=== PATIENT | female | born 1975 | race Caucasian/White ===

== ENCOUNTER 2017-09-23 21:54 | Emergency (ER) | payer MEDICAID ==
[2017-09-23] MEDS ORDERED: Ketorolac 10 MG Tab PO ONE (21:55)
[2017-09-23] MEDS ORDERED: Sulfamethoxazole/Trimethoprim 800-160 MG Tab PO ONE (21:55)
[2017-09-23 22:03] VITALS: BP 148/90
[2017-09-23 22:34] LABS: CHLORIDE,CL 101 mEq/L (98-106); SODIUM,NA 140 mEq/L (136-145)
[2017-09-23] MEDS ORDERED: Ketorolac 60 MG/2 ML SDV IM ONE (22:46)
--- NOTE | 2017-09-23 23:41 | EDM.PDOC ---
ED HPI GENERAL MEDICAL PROBLEM - General Chief Complaint: Abdominal Pain Stated Complaint: UPPER ABDOMEN PAIN Time Seen by Provider: 09/23/17 22:05 Source of Information: Reports: Patient History Limitations: Reports: No Limitations - History of Present Illness INITIAL COMMENTS - FREE TEXT/NARRATIVE: Emily is a 42 yo female who presents to the ER, accompanied by her mother, with complaints of lower abdominal pain since last week Friday. She states on Friday when she ate lunch and supper she ended up vomiting afterwards. Admits she hasn't had any emesis since but has felt nauseated. She states the pain started Friday evening and really hasn't let up. Had a little diarrhea today but had a normal bowel movement yesterday. She denies flu-like symptoms presently. States her abdomen just hurts. Periods have been normal for her with last cycle sometime at the end of July or beginning of August. States she will go without a period some months. Denies any chance of . States she has been eating chicken broth, saltine crackers, popsicles, etc... She admits to still having her gallbladder and appendix. Onset Date: 09/19/17 Duration: Constant Location: Reports: Abdomen Abdominal Pain Score (Numeric/FACES): 8 - Related Data Allergies Allergy/AdvReac Type Severity Reaction Status Date / Time No Known Allergies Allergy Verified 09/23/17 22:03 Home Meds: Home Meds Furosemide [Lasix] 40 mg PO DAILY 09/23/17 [History] Gabapentin [Neurontin] 100 mg PO TID 09/23/17 [History] Iron,Carbonyl/Vit C/Vit B12/Fa [Iron 100 Plus Tablet] 65 mg PO DAILY 09/23/17 [ History] Naproxen Sodium [Aleve] 220 mg PO ASDIRECTED PRN 09/23/17 [History] Polyvinyl Alcohol/Povidone/Pf [Refresh Classic Eye Drops] 1 drop EYEBOTH DAILY 09/23/17 [History] Past Medical History HEENT History: Reports: Impaired Vision Other HEENT History: GLASSES Endocrine/Metabolic History: Reports: Obesity/BMI 30+ Hematologic History: Reports: B12 Deficiency, Iron Deficiency Dermatologic History: Reports: Urticaria Social & Family History - Family History Family Medical History: Noncontributory - Tobacco Use Smoking Status *Q: Never Smoker - Caffeine Use Caffeine Use: Reports: Soda - Recreational Drug Use Recreational Drug Use: No ED ROS GENERAL - Review of Systems Review Of Systems: See Below Constitutional: Reports: Decreased Appetite. Denies: Fever, Chills HEENT: Reports: No Symptoms Respiratory: Reports: No Symptoms. Denies: Shortness of Breath, Wheezing, Cough Cardiovascular: Denies: Chest Pain, Palpitations GI/Abdominal: Reports: Abdominal Pain, Diarrhea, Vomiting. Denies: Bloody Stool , Nausea (not presently) : Reports: Irregular Menses. Denies: Discharge, Dysuria, Flank Pain, Frequency, Hematuria Skin: Reports: No Symptoms Neurological: Reports: No Symptoms ED EXAM, GI/ABD - Physical Exam Exam: See Below Exam Limited By: No Limitations General Appearance: Alert, No Apparent Distress, Obese. No: Anxious, Severe Distress, Active Emesis Ears: Normal External Exam, Normal Canal, Hearing Grossly Normal, Normal TMs Nose: Normal Inspection, Normal Mucosa, No Blood Throat/Mouth: Normal Inspection, Normal Lips, Normal Gums, Normal Oropharynx, Normal Voice, No Airway Compromise Head: Atraumatic, Normocephalic Neck: Normal Inspection, Supple Respiratory/Chest: No Respiratory Distress, Lungs Clear, Normal Breath Sounds, No Accessory Muscle Use Cardiovascular: Normal Peripheral Pulses, Regular Rate, Rhythm GI/Abdominal Exam: Normal Bowel Sounds, Soft, No Organomegaly, No Distention, No Mass, Tender (mild suprapubic) Neurological: Alert, Oriented, Normal Cognition, No Motor/Sensory Deficits Psychiatric: Normal Affect, Normal Mood Skin Exam: Warm, Dry, Intact, Normal Color, No Rash Course - Vital Signs Last Recorded V/S: Last Vital Signs Temp 98.4 F 09/23/17 21:55 Pulse 67 09/23/17 21:55 Resp 18 09/23/17 21:55 BP 148/90 H 09/23/17 21:55 Pulse Ox 93 L 09/23/17 21:55 - Orders/Labs/Meds Orders: Active Orders 24 hr Category Date Time Status UA W/MICROSCOPIC [URIN] Stat Lab 09/23/17 22:20 Ordered Labs: Laboratory Tests 09/23/17 09/23/17 09/23/17 Range/Units 22:20 22:20 22:20 WBC 7.4 (5.0-10.0) 10^3/uL RBC 4.92 (4.00-5.50) 10^6/uL Hgb 13.9 (12.0-16.0) g/dL Hct 44.7 (37.0-47.0) % MCV 90.9 (82.0-94.0) fL MCH 28.3 (27.0-32.0) pg MCHC 31.1 L (33.0-38.0) g/dL RDW Coeff of Brain 14.0 (11.0-15.0) % Plt Count 162 (150-400) 10^3/uL Neut % (Auto) 79.3 (35-85) % Lymph % (Auto) 11.0 (10-55) % [place] % (Auto) 7.5 (0-16) % Eos % (Auto) 1.9 (0-5) % Baso % (Auto) 0.3 (0-3) % Neut # (Auto) 5.90 (1.80-7.00) 10^3/uL Lymph # (Auto) 0.82 L (1.00-4.80) 10^3/uL [place] # (Auto) 0.56 (0.00-0.80) 10^3/uL Eos # (Auto) 0.14 (0.00-0.45) 10^3/uL Baso # (Auto) 0.02 10^3/uL Sodium 140 (136-145) mEq/L Potassium 4.3 (3.5-5.0) mEq/L Chloride 101 (98-106) mEq/L Carbon Dioxide 36 H (21-32) mmol/L BUN 12 (7-18) mg/dL Creatinine 1.0 D (0.6-1.0) mg/dL Est Cr Clr Drug Dosing 60.62 mL/min Estimated GFR (MDRD) > 60 (>=60) mL/min Glucose 115 H (75-99) mg/dL Calcium 9.4 (8.4-10.1) mg/dL Total Bilirubin 0.6 (0.0-1.0) mg/dL AST 21 (15-37) U/L ALT 31 (12-78) U/L Alkaline Phosphatase 146 H (46-116) U/L C-Reactive Protein 3.2 H (0.2-0.8) mg/dL Total Protein 7.4 (6.4-8.2) g/dL Albumin 2.9 L (3.4-5.0) g/dL Amylase 54 (25-115) U/L Urine Color Yellow (YELLOW) Urine Appearance Slightly cloudy (CLEAR) Urine pH 7.0 (4.5-8.0) Ur Specific [place] 1.015 (1.003-1.020) Urine Protein Negative (NEGATIVE) mg/dL Urine Glucose (UA) Negative (NEGATIVE) mg/dL Urine Ketones Negative (NEGATIVE) mg/dL Urine Occult Blood Large H (NEGATIVE) Urine Nitrite Negative (NEGATIVE) Urine Bilirubin Negative (NEGATIVE) Urine Urobilinogen 0.2 (0.2-1.0) EU/dL Ur Leukocyte Esterase Trace H (NEGATIVE) Urine RBC 50-75 H (0-5) /HPF Urine WBC 0-5 (0-5) /HPF Ur Squamous Epith Cells Moderate H (NOT SEEN) /HPF Urine Bacteria Occasional H (NOT SEEN) /HPF Meds: Medications Discontinued Medications Generic Name Dose Route Start Last Admin Trade Name Freq PRN Reason Stop Dose Admin Ketorolac Tromethamine 60 mg 09/23/17 22:46 09/23/17 22:51 Toradol IM 09/23/17 22:47 60 mg ONETIME ONE Administration Departure - Departure Time of Disposition: 23:43 Disposition: Home, Self-Care 01 Clinical Impression: UTI (urinary tract infection) Qualifiers: Urinary tract infection type: acute cystitis Hematuria presence: with hematuria Qualified Code(s): N30.01 - Acute cystitis with hematuria - Discharge Information Instructions: Urinary Tract Infection, Adult Additional Instructions: 1) TORADOL 10MG - 1 TABLET EVERY 8 HOURS NEEDED FOR PAIN, RECOMMEND ALTERNATING WITH TYLENOL 2) PUSH FLUIDS 3) REST 4) BACTRIM DS - 1 TABLET TWICE A DAY FOR 3 DAYS, MAY TAKE INITIAL DOSE TONIGHT IN ER 5) RECHECK IN CLINIC ON FRIDAY WITH REPEAT URINALYSIS WITH POSSIBLE RENAL/ BLADDER ULTRASOUND 6) RETURN TO ER IF PAIN WORSENS OR ANY NEW ONSET OF SYMPTOMS (FEVERS, ETC...). - Problem List & Annotations (1) UTI (urinary tract infection) SNOMED Code(s): 66604683 Code(s): N39.0 - URINARY TRACT INFECTION, SITE NOT SPECIFIED Status: Acute Qualifiers: Urinary tract infection type: acute cystitis Hematuria presence: with hematuria Qualified Code(s): N30.01 - Acute cystitis with hematuria - Problem List Review Problem List Initiated/Reviewed/Updated: Yes - My Orders Last 24 Hours: My Active Orders 09/23/17 22:20 UA W/MICROSCOPIC [URIN] Stat - Assessment/Plan Last 24 Hours: My Active Orders 09/23/17 22:20 UA W/MICROSCOPIC [URIN] Stat Plan: SEE ADDITIONAL INSTRUCTIONS. LABORATORY WORK WAS FAIRLY UNREMARKABLE. WBC, NORMAL. URINALYSIS DID SHOW HEMATURIA WITH QUESTIONABLE UTI. WILL HAVE HER FOLLOW UP ON FRIDAY IN CLINIC FOR REPEAT UA.
[2017-09-23] MEDS ORDERED: Take Home: Ketorolac 10 MG Tab, 4 Tab Pack PO ONE (23:44)
[2017-09-23] MEDS ORDERED: Take Home: Sulfamethoxazole/Trimethoprim 800-160 MG Tab, 2 Tab Pack PO ONE (23:45)
== END 2017-09-24 00:05 | disposition home or self-care (01) ==
LOC: CC.ED 21:54
DX: N30.01 Acute cystitis with hematuria (principal); E66.9 Obesity, unspecified; Z79.899 Other long term (current) drug therapy
CPT/HCPCS: 36415; 80053; 81001; 82150; 85025; 86140; 96372; 99284; A9270-GY; J1885

== ENCOUNTER 2018-10-22 13:55 | Emergency (ER) | payer MEDICAID ==
[2018-10-22 14:07] VITALS: BP 113/74
--- NOTE | 2018-10-22 14:53 | EDM.PDOC ---
ED HPI GENERAL MEDICAL PROBLEM - General Chief Complaint: Head Injury Stated Complaint: Fall, LOC Time Seen by Provider: 10/22/18 14:15 Source of Information: Reports: Patient, Family (Mom) History Limitations: Reports: No Limitations - History of Present Illness INITIAL COMMENTS - FREE TEXT/NARRATIVE: Pt tripped at home and fell on to the floor onto her abdomen. Mother was there and witnessed it. She did hit her head on the corner of the wall. 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 She was not able to roll herself over and her mother did attempt to help her. She states that at some point she passed out and Mom states that she was having trouble breathing. She did call the ambulance for assistance and they were able to roll her over and get her up to sitting. She remembers falling and then everybody talking to her. She denies any pain or injury. Does have small red william on the right side of her head that is not tender. 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 Onset: Today Location: Reports: Head Associated Symptoms: Denies: Confusion, Nausea/Vomiting Treatments POPULATION HEALTH COACH: Reports: Other (see below) Other Treatments POPULATION HEALTH COACH: On home oxygen - Related Data Allergies Allergy/AdvReac Type Severity Reaction Status Date / Time No Known Allergies Allergy Verified 10/22/18 14:14 Home Meds: Home Meds Furosemide [Lasix] 40 mg PO DAILY 09/23/17 [History] Gabapentin [Neurontin] 100 mg PO TID 09/23/17 [History] Iron,Carbonyl/Vit C/Vit B12/Fa [Iron 100 Plus Tablet] 65 mg PO DAILY 09/23/17 [ History] Naproxen Sodium [Aleve] 220 mg PO ASDIRECTED PRN 09/23/17 [History] Polyvinyl Alcohol/Povidone/Pf [Refresh Classic Eye Drops] 1 drop EYEBOTH DAILY 09/23/17 [History] Past Medical History HEENT History: Reports: Impaired Vision Other HEENT History: GLASSES Neurological History: Reports: Other (See Below) (myotonic dystrophy) Endocrine/Metabolic History: Reports: Obesity/BMI 30+ Hematologic History: Reports: B12 Deficiency, Iron Deficiency Dermatologic History: Reports: Urticaria Social & Family History - Family History Family Medical History: Noncontributory - Caffeine Use Caffeine Use: Reports: Soda - Living Situation & Occupation Living situation: Reports: Single, with Family Occupation: Disabled ED ROS GENERAL - Review of Systems Review Of Systems: See Below Constitutional: Denies: Fever, Chills HEENT: Reports: No Symptoms Respiratory: Reports: Shortness of Breath (has home oxygen.) Cardiovascular: Reports: No Symptoms GI/Abdominal: Reports: No Symptoms Musculoskeletal: Denies: Neck Pain, Back Pain Skin: Reports: No Symptoms Neurological: Denies: Confusion, Dizziness, Headache, Numbness, Tingling, Difficulty Walking Psychiatric: Denies: Anxiety, Confusion ED EXAM, HEAD INJURY - Physical Exam Exam: See Below Exam Limited By: No Limitations General Appearance: Alert, WD/WN, No Apparent Distress Head: Atraumatic, Normocephalic Nexus Criteria: No: Posterior, Midline Cervical Tenderness, Evidence of Intoxication, Altered Level of Consciousness, Focal Neurological Deficit, Painful Distraction Injuries Eyes: Bilateral Eye: PERRL Ears: Normal External Exam, Normal Canal, Normal TMs Nose: Normal Inspection Throat/Mouth: Normal Inspection, Normal Oropharynx, No Airway Compromise Neck: Non-Tender, Full Range of Motion, Normal Alignment, Normal Inspection Respiratory: No Respiratory Distress, Lungs Clear, Normal Breath Sounds Cardiovascular: Regular Rate, Rhythm GI/Abdominal Exam: Normal Bowel Sounds, Soft, No Organomegaly Back Exam: Normal Inspection Extremities: Normal Inspection, Normal Range of Motion, Non-Tender, No Pedal Edema, Normal Capillary Refill Neurologic: No Motor/Sensory Deficits, Alert, Oriented x 3 Skin: Normal Color, Warm/Dry - Campbell Coma Score Best Eye Response (Campbell): (4) Open Spontaneously Best Verbal Response (Rissa): (5) Oriented Best Motor Response (Campbell): (6) Obeys Commands Rissa Total: 15 Course - Vital Signs Last Recorded V/S: Last Vital Signs Temp 97.4 F 10/22/18 14:02 Pulse 89 10/22/18 14:02 Resp 23 H 10/22/18 14:02 BP 113/74 10/22/18 14:02 Pulse Ox 94 L 10/22/18 14:02 - Orders/Labs/Meds Labs: Laboratory Tests 10/22/18 10/22/18 10/22/18 Range/Units 14:30 14:40 14:40 WBC 9.5 (5.0-10.0) 10^3/uL RBC 4.94 (4.00-5.50) 10^6/uL Hgb 12.9 (12.0-16.0) g/dL Hct 44.2 (37.0-47.0) % MCV 89.5 (82.0-94.0) fL MCH 26.1 L (27.0-32.0) pg MCHC 29.2 L (33.0-38.0) g/dL RDW Coeff of Brain 16.9 H (11.0-15.0) % Plt Count 199 (150-400) 10^3/uL Add Manual Diff Yes Neutrophils % (Manual) 82 (35-85) % Band Neutrophils % 4 (0-5) % Lymphocytes % (Manual) 5 L (21-55) % Monocytes % (Manual) 8 (2-12) % Eosinophils % (Manual) 1 (0-5) % Sodium 144 (136-145) mEq/L Potassium 3.3 L (3.5-5.0) mEq/L Chloride 104 (98-106) mEq/L Carbon Dioxide 40 H (21-32) mmol/L BUN 10 (7-18) mg/dL Creatinine 0.6 (0.6-1.0) mg/dL Est Cr Clr Drug Dosing 100.01 mL/min Estimated GFR (MDRD) > 60 (>=60) mL/min Glucose 128 H (75-99) mg/dL Calcium 9.8 (8.4-10.1) mg/dL Magnesium 2.1 (1.8-2.4) mg/dL Total Bilirubin 0.3 (0.0-1.0) mg/dL AST 61 H (15-37) U/L ALT 56 (12-78) U/L Alkaline Phosphatase 185 H (46-116) U/L Total Protein 7.2 (6.4-8.2) g/dL Albumin 2.8 L (3.4-5.0) g/dL Urine Color Yellow (YELLOW) Urine Appearance Clear (CLEAR) Urine pH 7.0 (4.5-8.0) Ur Specific [place] 1.020 (1.003-1.020) Urine Protein 30 H (NEGATIVE) mg/dL Urine Glucose (UA) Negative (NEGATIVE) mg/dL Urine Ketones Negative (NEGATIVE) mg/dL Urine Occult Blood Small H (NEGATIVE) Urine Nitrite Negative (NEGATIVE) Urine Bilirubin Negative (NEGATIVE) Urine Urobilinogen 0.2 (0.2-1.0) EU/dL Ur Leukocyte Esterase Negative (NEGATIVE) Urine RBC 5-10 H (0-5) /HPF Urine WBC 0-5 (0-5) /HPF Ur Squamous Epith Cells Occasional H (NOT SEEN) /HPF - Re-Assessments/Exams Free Text/Narrative Re-Assessment/Exam: 10/22/18 1515 Pt is up and walking in ER per self. She denies any weakness or dizziness. States that she is back to her baseline. Departure - Departure Time of Disposition: 15:26 Disposition: Home, Self-Care 01 Condition: Good Clinical Impression: Fall at home Qualifiers: Encounter type: initial encounter Qualified Code(s): W19.XXXA - Unspecified fall, initial encounter - Discharge Information *PRESCRIPTION DRUG MONITORING PROGRAM REVIEWED*: Not Applicable *COPY OF PRESCRIPTION DRUG MONITORING REPORT IN PATIENT LOPEZ: Not Applicable Instructions: Head Injury, Adult, [id number] Referrals: Leti Schulz PA-C [Primary Care Provider] - Forms: ED Department Discharge Additional Instructions: If any change in status occurs then would need to be reseen recheck or call clinic with any concerns - Problem List & Annotations (1) Fall at home SNOMED Code(s): 15115776 Code(s): W19.XXXA - UNSPECIFIED FALL, INITIAL ENCOUNTER; Y92.009 - UNSP PLACE IN UNSP NON-INSTITUT (PRIVATE) RESIDENCE PLACE Status: Acute Qualifiers: Encounter type: initial encounter Qualified Code(s): W19.XXXA - Unspecified fall, initial encounter; Y92.009 - Unspecified place in unspecified non-institutional (private) residence as the place of occurrence of the external cause - Problem List Review Problem List Initiated/Reviewed/Updated: Yes
[2018-10-22 14:57] LABS: CHLORIDE,CL 104 mEq/L (98-106); SODIUM,NA 144 mEq/L (136-145)
== END 2018-10-22 15:36 | disposition home or self-care (01) ==
LOC: CC.ED 13:55
DX: Z04.3 Encounter for examination and observation following other accident (principal); Z99.81 Dependence on supplemental oxygen; Z79.899 Other long term (current) drug therapy
CPT/HCPCS: 36415; 80053; 81001; 83735; 85025; 99284

== ENCOUNTER 2019-11-13 18:17 | Observation (INO) | payer MEDICAID ==
--- NOTE | 2019-11-13 18:45 | EDM.PDOC ---
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 Her mother is having trouble helping manage her at this point. The patient advises that she has had increased lower extremity edema and redness and has had some mild shortness of breath she denies any chest pain she denies any abdominal pain she denies any nausea no vomiting she has had no diarrhea no constipation. She denies any other symptoms Onset: Gradual Duration: Day(s): (Patient has become more weak and having the symptoms of the last several days) Location: Reports: Generalized Severity: Moderate Improves with: Reports: None Worsens with: Reports: None Associated Symptoms: Reports: Shortness of Breath, Weakness. 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: Other (see below) (none) Bilateral Leg Pain Score (Numeric/FACES): 8 - Related Data Allergies Allergy/AdvReac Type Severity Reaction Status Date / Time No Known Allergies Allergy Verified 11/13/19 18:20 Home Meds: Home Meds Furosemide [Lasix] 40 mg PO DAILY 09/23/17 [History] Gabapentin [Neurontin] 100 mg PO TID 09/23/17 [History] Iron,Carb/Vit C/Vit B12/Folic [Iron 100 Plus Tablet] 65 mg PO DAILY 09/23/17 [ History] Naproxen Sodium [Aleve] 220 mg PO ASDIRECTED PRN 09/23/17 [History] Polyvinyl Alcohol/Povidone/Pf [Refresh Classic Eye Drops] 1 drop EYEBOTH DAILY 09/23/17 [History] Past Medical History HEENT History: Reports: Impaired Vision Other HEENT History: GLASSES Musculoskeletal History: Reports: Other (See Below) Other Musculoskeletal History: myotonic dystrophy Neurological History: Reports: Other (See Below) Endocrine/Metabolic History: Reports: Obesity/BMI 30+ Hematologic History: Reports: B12 Deficiency, Iron Deficiency Dermatologic History: Reports: Urticaria Social & Family History - Family History Family Medical History: Noncontributory - Tobacco Use Smoking Status *Q: Never Smoker - Caffeine Use Caffeine Use: Reports: Soda - Recreational Drug Use Recreational Drug Use: No - Living Situation & Occupation Living situation: Reports: Single, with Family Occupation: Disabled ED ROS GENERAL - Review of Systems Review Of Systems: See Below Constitutional: Reports: Weakness. Denies: Fever, Chills HEENT: Reports: No Symptoms. Denies: Ear Pain, Nose Pain, Throat Pain Respiratory: Reports: Shortness of Breath. Denies: Cough Cardiovascular: Reports: Edema (Lateral lower extremity edema). Denies: Chest Pain Endocrine: Reports: No Symptoms GI/Abdominal: Denies: Abdominal Pain, Nausea, Vomiting Musculoskeletal: Reports: Other (Has generalized weakness which is normal for the patient with her genetic condition, per the patient) Skin: Reports: Erythema (Mild redness to both distal lower extremities from the knees down to the ankles) Neurological: Reports: No Symptoms Psychiatric: Reports: No Symptoms ED EXAM, GENERAL - Physical Exam Exam: See Below Exam Limited By: No Limitations General Appearance: Alert, No Apparent Distress Ears: Normal External Exam Nose: Normal Inspection Throat/Mouth: Normal Inspection, Normal Voice, No Airway Compromise Head: Atraumatic, Normocephalic Neck: Normal Inspection, Supple, Non-Tender Respiratory/Chest: No Respiratory Distress. No: Lungs Clear (Sounds are diminished in the bases as she is morbidly obese and is not taking a deep breath) Cardiovascular: Normal Peripheral Pulses, Regular Rate, Rhythm. No: No Edema (Edema in both lower extremities equally) GI/Abdominal: Soft, Non-Tender, Other (Severe morbid obesity) Back Exam: Normal Inspection Extremities: Normal Capillary Refill, Redness, Other (Bilateral equal edema to both lower extremities). No: Seth's Sign Neurological: Alert, Oriented, Normal Cognition Psychiatric: Normal Affect, Normal Mood Skin Exam: Warm, Dry, Intact, No Rash EKG INTERPRETATION EKG Date: 11/13/19 Rhythm: NSR Rate (Beats/Min): 69 [place]: LAD-Left [place] Deviation EKG Interpretation Comments: Twelve-lead EKG shows a left bundle branch block with a ventricular rate of 69 there is no acute injury or ischemic pattern noted, I do not have any old EKGs to compare whether or not this is a new or old left bundle branch block. Course - Vital Signs Text/Narrative:: 1819 patient was evaluated in the emergency department patient appears to be dry, she does have bilateral lower extremity edema I suspect she has chronic lymphedema. 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 The patient's mom advises that she got the street from her father. Labs have been drawn and currently awaiting the results. EKG is still pending as well as a chest x-ray. An IV has been started with normal saline at 100 mL an hour 2000 the patient was evaluated in the emergency department, the patient CBC and general chemistries overall do not show any significant abnormalities however see the actual labs for complete details. The patient's BNP is slightly elevated. The twelve-lead EKG shows a left bundle branch block. This patient does appear to have mild congestive changes on the chest x-ray however this is a poor film and with the patient's body habitus this is difficult to determine and the radiology reading is pending. As the patient does appear to have early cellulitis of the bilateral lower extremities probably secondary to the chronic lymphedema as well as having some mild congestive heart failure based on the chest x-ray as well as the elevated BNP, the patient be placed in observation and she will be given Lasix 40 mg twice daily, the patient will have repeat labs in the morning and disposition and further treatment will be based on those assessments. Last Recorded V/S: Last Vital Signs Temp 36.8 C 11/13/19 18:18 Pulse 78 11/13/19 18:18 Resp 18 11/13/19 18:18 BP 162/82 H 11/13/19 18:18 Pulse Ox 96 11/13/19 18:18 - Orders/Labs/Meds Orders: Active Orders 24 hr Category Date Time Status Patient Status Manage Transfer [TRANSFER] Routine ADT 11/13/19 20:29 Ordered CXR [Chest 1V Frontal] [CR] Stat Exams 11/13/19 18:49 Taken CBC WITH AUTO DIFF [HEME] Stat Lab 11/13/19 18:20 Received PRO B-TYPE NATRIUR PEPT,BNPPRO [CHEM] Stat Lab 11/13/19 18:41 Ordered Sodium Chloride 0.9% [Normal Saline] 1,000 ml Med 11/13/19 18:30 Active IV ASDIRECTED Resuscitation Status Routine Resus Stat 11/13/19 20:32 Ordered Medication Orders Sodium Chloride (Normal Saline) 1,000 mls @ 100 mls/hr IV ASDIRECTED GRACIE Last Admin: 11/13/19 19:39 Dose: 100 mls/hr Documented by: JOSIE Labs: Laboratory Tests 11/13/19 11/13/19 11/13/19 Range/Units 18:20 18:20 18:20 Sodium 143 (136-145) mEq/L Potassium 3.3 L (3.5-5.0) mEq/L Chloride 101 (98-106) mEq/L Carbon Dioxide 41 H* (21-32) mmol/L BUN 11 (7-18) mg/dL Creatinine 0.7 (0.6-1.0) mg/dL Est Cr Clr Drug Dosing 84.84 mL/min Estimated GFR (MDRD) > 60 (>=60) mL/min Glucose 119 H (75-99) mg/dL Lactic Acid 0.7 (0.4-2.0) mmol/L Calcium 10.1 (8.4-10.1) mg/dL Magnesium 2.1 (1.8-2.4) mg/dL Total Bilirubin 0.6 (0.0-1.0) mg/dL AST 58 H (15-37) U/L ALT 50 (12-78) U/L Alkaline Phosphatase 160 H (46-116) U/L C-Reactive Protein 1.6 H (0.2-0.8) mg/dL Total Protein 7.1 (6.4-8.2) g/dL Albumin 3.0 L (3.4-5.0) g/dL Urine Color Yellow (YELLOW) Urine Appearance Clear (CLEAR) Urine pH 8.0 (4.5-8.0) Ur Specific [place] 1.015 (1.003-1.020) Urine Protein Negative (NEGATIVE) mg/dL Urine Glucose (UA) Negative (NEGATIVE) mg/dL Urine Ketones Negative (NEGATIVE) mg/dL Urine Occult Blood Trace-intact H (NEGATIVE) Urine Nitrite Negative (NEGATIVE) Urine Bilirubin Negative (NEGATIVE) Urine Urobilinogen 0.2 (0.2-1.0) EU/dL Ur Leukocyte Esterase Trace H (NEGATIVE) Meds: Medications Generic Name Dose Route Start Last Admin Trade Name Francisco Javier PRN Reason Stop Dose Admin Sodium Chloride 1,000 mls @ 100 mls/hr 11/13/19 18:30 11/13/19 19:39 Normal Saline IV 100 mls/hr ASDIRECTED GRACIE Administration Departure - Departure Time of Disposition: 20:28 Disposition: Refer to Observation Condition: Good Clinical Impression: Bilateral lower leg cellulitis, Mild congestive heart failure, Shortness of breath, Weakness - Discharge Information *PRESCRIPTION DRUG MONITORING PROGRAM REVIEWED*: Not Applicable *COPY OF PRESCRIPTION DRUG MONITORING REPORT IN PATIENT LOPEZ: Not Applicable Referrals: Humberto Torres MD [Primary Care Provider] - Forms: ED Department Discharge Sepsis Event Note (ED) - Evaluation Sepsis Screening Result: No Definite Risk - Focused Exam Vital Signs: Vital Signs Temp Pulse Resp BP Pulse Ox 11/13/19 18:18 36.8 C 78 18 162/82 H 96 - Problem List & Annotations (1) Bilateral lower leg cellulitis SNOMED Code(s): 237099239 Code(s): L03.116 - CELLULITIS OF LEFT LOWER LIMB; L03.115 - CELLULITIS OF RIGHT LOWER LIMB Status: Acute Priority: Medium Current Visit: Yes (2) Mild congestive heart failure SNOMED Code(s): 70052260 Code(s): I50.9 - HEART FAILURE, UNSPECIFIED Status: Acute Priority: High Current Visit: Yes (3) Shortness of breath SNOMED Code(s): 818421525 Code(s): R06.02 - SHORTNESS OF BREATH Status: Acute Priority: High Current Visit: Yes (4) Weakness SNOMED Code(s): 13966048 Code(s): R53.1 - WEAKNESS Status: Acute Priority: Medium Current Visit: Yes - Problem List Review Problem List Initiated/Reviewed/Updated: Yes - My Orders Last 24 Hours: My Active Orders 11/13/19 18:20 CBC WITH AUTO DIFF [HEME] Stat 11/13/19 18:30 Sodium Chloride 0.9% [Normal Saline] 1,000 ml IV ASDIRECTED 11/13/19 18:41 PRO B-TYPE NATRIUR PEPT,BNPPRO [CHEM] Stat 11/13/19 18:49 CXR [Chest 1V Frontal] [CR] Stat 11/13/19 20:29 Patient Status Manage Transfer [TRANSFER] Routine 11/13/19 20:32 Resuscitation Status Routine - Assessment/Plan Admission H&P: Please use this note as an admission H&P Last 24 Hours: My Active Orders 11/13/19 18:20 CBC WITH AUTO DIFF [HEME] Stat 11/13/19 18:30 Sodium Chloride 0.9% [Normal Saline] 1,000 ml IV ASDIRECTED 11/13/19 18:41 PRO B-TYPE NATRIUR PEPT,BNPPRO [CHEM] Stat 11/13/19 18:49 CXR [Chest 1V Frontal] [CR] Stat 11/13/19 20:29 Patient Status Manage Transfer [TRANSFER] Routine 11/13/19 20:32 Resuscitation Status Routine Plan: The patient's past medical history, past surgical history, social history and past family medical history was reviewed see the nursing notes for complete details
[2019-11-13 19:02] LABS: CHLORIDE,CL 101 mEq/L (98-106); SODIUM,NA 143 mEq/L (136-145)
[2019-11-13] MEDS: Sodium Chloride 0.9% 1,000 ML IV SCH (19:39)
[2019-11-13] MEDS ORDERED: cefTRIAXone 2 GM Vial IM ONE (20:53)
[2019-11-13] MEDS ORDERED: Sodium Chloride 0.9% 10 ML Syringe FLUSH PRN (21:13)
[2019-11-13] MEDS ORDERED: cefTRIAXone 2 GM Vial IVPUSH ONE (22:30)
[2019-11-13] MEDS: Gabapentin 100 MG Cap**OWN MED PO SCH (22:59)
[2019-11-13] MEDS: Enoxaparin 40 MG/0.4 ML Syringe SUBCUT SCH (23:38)
[2019-11-13] MEDS: Albuterol/Ipratropium 3.0-0.5 MG/3 ML Neb Soln NEB SCH (23:39)
[2019-11-14] MEDS: Sodium Chloride 0.9% 1,000 ML IV SCH (06:02)
[2019-11-14] MEDS ORDERED: [UNRECOGNIZED DRUG - OTHER] PO SCH (08:00)
[2019-11-14] MEDS ORDERED: IRON CARB PO SCH (08:00)
[2019-11-14] MEDS ORDERED: Non-Formulary Medication 1 Each (Polyvinyl Alcohol/Povidone/Pf [Refresh Classic Eye Drops] EYEBOTH SCH (08:00)
[2019-11-14] MEDS ORDERED: VIT C PO SCH (08:00)
[2019-11-14] MEDS ORDERED: FOLIC PO SCH (08:00)
[2019-11-14] MEDS ORDERED: Albuterol/Ipratropium 3.0-0.5 MG/3 ML Neb Soln NEB SCH (08:00)
[2019-11-14] MEDS ORDERED: VIT B12 PO SCH (08:00)
[2019-11-14 08:05] LABS: CHLORIDE,CL 103 mEq/L (98-106); SODIUM,NA 145 mEq/L (136-145)
[2019-11-14] MEDS: FERROUS FUMARATE 18 MG PO SCH (08:08)
[2019-11-14] MEDS: Albuterol/Ipratropium 3.0-0.5 MG/3 ML Neb Soln NEB SCH ×4 (08:08→21:05)
[2019-11-14] MEDS: Gabapentin 100 MG Cap**OWN MED PO SCH ×3 (08:08→21:06)
[2019-11-14] MEDS ORDERED: cefTRIAXone 1 GM Vial IVPUSH SCH (09:30)
--- NOTE | 2019-11-14 09:32 | PCM.PN ---
- General Info Date of Service: 11/14/19 Admission Dx/Problem (Free Text): CHF, Cellulitis bilateral lower ext, - Review of Systems General: Reports: No Symptoms HEENT: Reports: No Symptoms Pulmonary: Reports: No Symptoms. Denies: Shortness of Breath Cardiovascular: Reports: No Symptoms. Denies: Chest Pain Gastrointestinal: Reports: No Symptoms. Denies: Abdominal Pain, Nausea, Vomiting Musculoskeletal: Reports: No Symptoms Skin: Reports: Other (redness in legs has decreased) Neurological: Reports: No Symptoms Psychiatric: Reports: No Symptoms - Patient Data Vitals - Most Recent: Last Vital Signs Temp 36.3 C 11/14/19 08:00 Pulse 80 11/14/19 08:00 Resp 18 11/14/19 08:00 BP 137/74 11/14/19 08:00 Pulse Ox 95 11/14/19 08:00 Weight - Most Recent: 164.427 kg I&O - Last 24 Hours: Intake & Output 11/13/19 11/14/19 11/14/19 22:59 06:59 14:59 Intake Total 1320 Output Total 300 Balance 1020 Lab Results Last 24 Hours: Laboratory Results - last 24 hr 11/13/19 11/13/19 11/13/19 Range/Units 18:20 18:20 18:20 WBC 5.3 (5.0-10.0) 10^3/uL RBC 4.64 (4.00-5.50) 10^6/uL Hgb 12.7 (12.0-16.0) g/dL Hct 43.9 (37.0-47.0) % MCV 94.6 H (82.0-94.0) fL MCH 27.4 (27.0-32.0) pg MCHC 28.9 L (33.0-38.0) g/dL RDW Coeff of Brain 15.0 (11.0-15.0) % Plt Count 171 (150-400) 10^3/uL MPV fL Neut % (Auto) 74.4 (35-85) % Lymph % (Auto) 14.8 (10-55) % [place] % (Auto) 7.6 (0-16) % Eos % (Auto) 3.0 (0-5) % Baso % (Auto) 0.2 (0-3) % Neut # (Auto) 3.93 (1.80-7.00) 10^3/uL Lymph # (Auto) 0.78 L (1.00-4.80) 10^3/uL [place] # (Auto) 0.40 (0.00-0.80) 10^3/uL Eos # (Auto) 0.16 (0.00-0.45) 10^3/uL Baso # (Auto) 0.01 10^3/uL Sodium 143 (136-145) mEq/L Potassium 3.3 L (3.5-5.0) mEq/L Chloride 101 (98-106) mEq/L Carbon Dioxide 41 H* (21-32) mmol/L BUN 11 (7-18) mg/dL Creatinine 0.7 (0.6-1.0) mg/dL Est Cr Clr Drug Dosing 84.84 mL/min Estimated GFR (MDRD) > 60 (>=60) mL/min Glucose 119 H (75-99) mg/dL Lactic Acid (0.4-2.0) mmol/L Calcium 10.1 (8.4-10.1) mg/dL Magnesium 2.1 (1.8-2.4) mg/dL Total Bilirubin 0.6 (0.0-1.0) mg/dL AST 58 H (15-37) U/L ALT 50 (12-78) U/L Alkaline Phosphatase 160 H (46-116) U/L Troponin I (0.00-0.06) ng/mL C-Reactive Protein 1.6 H (0.2-0.8) mg/dL Total Protein 7.1 (6.4-8.2) g/dL Albumin 3.0 L (3.4-5.0) g/dL Urine Color Yellow (YELLOW) Urine Appearance Clear (CLEAR) Urine pH 8.0 (4.5-8.0) Ur Specific [place] 1.015 (1.003-1.020) Urine Protein Negative (NEGATIVE) mg/dL Urine Glucose (UA) Negative (NEGATIVE) mg/dL Urine Ketones Negative (NEGATIVE) mg/dL Urine Occult Blood Trace-intact H (NEGATIVE) Urine Nitrite Negative (NEGATIVE) Urine Bilirubin Negative (NEGATIVE) Urine Urobilinogen 0.2 (0.2-1.0) EU/dL Ur Leukocyte Esterase Trace H (NEGATIVE) 11/13/19 11/14/19 11/14/19 Range/Units 18:20 01:00 05:11 WBC 4.6 L (5.0-10.0) 10^3/uL RBC 4.22 (4.00-5.50) 10^6/uL Hgb 11.5 L (12.0-16.0) g/dL Hct 40.7 (37.0-47.0) % MCV 96.4 H (82.0-94.0) fL MCH 27.3 (27.0-32.0) pg MCHC 28.3 L (33.0-38.0) g/dL RDW Coeff of Brain 15.2 H (11.0-15.0) % Plt Count 160 (150-400) 10^3/uL MPV 10.8 fL Neut % (Auto) (35-85) % Lymph % (Auto) (10-55) % [place] % (Auto) (0-16) % Eos % (Auto) (0-5) % Baso % (Auto) (0-3) % Neut # (Auto) (1.80-7.00) 10^3/uL Lymph # (Auto) (1.00-4.80) 10^3/uL [place] # (Auto) (0.00-0.80) 10^3/uL Eos # (Auto) (0.00-0.45) 10^3/uL Baso # (Auto) 10^3/uL Sodium (136-145) mEq/L Potassium (3.5-5.0) mEq/L Chloride (98-106) mEq/L Carbon Dioxide (21-32) mmol/L BUN (7-18) mg/dL Creatinine (0.6-1.0) mg/dL Est Cr Clr Drug Dosing mL/min Estimated GFR (MDRD) (>=60) mL/min Glucose (75-99) mg/dL Lactic Acid 0.7 (0.4-2.0) mmol/L Calcium (8.4-10.1) mg/dL Magnesium (1.8-2.4) mg/dL Total Bilirubin (0.0-1.0) mg/dL AST (15-37) U/L ALT (12-78) U/L Alkaline Phosphatase (46-116) U/L Troponin I 0.055 (0.00-0.06) ng/mL C-Reactive Protein (0.2-0.8) mg/dL Total Protein (6.4-8.2) g/dL Albumin (3.4-5.0) g/dL Urine Color (YELLOW) Urine Appearance (CLEAR) Urine pH (4.5-8.0) Ur Specific [place] (1.003-1.020) Urine Protein (NEGATIVE) mg/dL Urine Glucose (UA) (NEGATIVE) mg/dL Urine Ketones (NEGATIVE) mg/dL Urine Occult Blood (NEGATIVE) Urine Nitrite (NEGATIVE) Urine Bilirubin (NEGATIVE) Urine Urobilinogen (0.2-1.0) EU/dL Ur Leukocyte Esterase (NEGATIVE) 11/14/19 11/14/19 Range/Units 05:11 07:00 WBC (5.0-10.0) 10^3/uL RBC (4.00-5.50) 10^6/uL Hgb (12.0-16.0) g/dL Hct (37.0-47.0) % MCV (82.0-94.0) fL MCH (27.0-32.0) pg MCHC (33.0-38.0) g/dL RDW Coeff of Brain (11.0-15.0) % Plt Count (150-400) 10^3/uL MPV fL Neut % (Auto) (35-85) % Lymph % (Auto) (10-55) % [place] % (Auto) (0-16) % Eos % (Auto) (0-5) % Baso % (Auto) (0-3) % Neut # (Auto) (1.80-7.00) 10^3/uL Lymph # (Auto) (1.00-4.80) 10^3/uL [place] # (Auto) (0.00-0.80) 10^3/uL Eos # (Auto) (0.00-0.45) 10^3/uL Baso # (Auto) 10^3/uL Sodium 145 (136-145) mEq/L Potassium 3.4 L (3.5-5.0) mEq/L Chloride 103 (98-106) mEq/L Carbon Dioxide 43 H* (21-32) mmol/L BUN 8 (7-18) mg/dL Creatinine 0.5 L (0.6-1.0) mg/dL Est Cr Clr Drug Dosing 116.17 mL/min Estimated GFR (MDRD) > 60 (>=60) mL/min Glucose 111 H (75-99) mg/dL Lactic Acid (0.4-2.0) mmol/L Calcium 9.3 (8.4-10.1) mg/dL Magnesium (1.8-2.4) mg/dL Total Bilirubin 0.4 (0.0-1.0) mg/dL AST 51 H (15-37) U/L ALT 43 (12-78) U/L Alkaline Phosphatase 136 H (46-116) U/L Troponin I 0.028 (0.00-0.06) ng/mL C-Reactive Protein (0.2-0.8) mg/dL Total Protein 6.4 (6.4-8.2) g/dL Albumin 2.5 L (3.4-5.0) g/dL Urine Color (YELLOW) Urine Appearance (CLEAR) Urine pH (4.5-8.0) Ur Specific [place] (1.003-1.020) Urine Protein (NEGATIVE) mg/dL Urine Glucose (UA) (NEGATIVE) mg/dL Urine Ketones (NEGATIVE) mg/dL Urine Occult Blood (NEGATIVE) Urine Nitrite (NEGATIVE) Urine Bilirubin (NEGATIVE) Urine Urobilinogen (0.2-1.0) EU/dL Ur Leukocyte Esterase (NEGATIVE) Med Orders - Current: Current Medications Albuterol/Ipratropium (Duoneb 3.0-0.5 Mg/3 Ml) 3 ml NEB QIDRT [facility] Last Admin: 11/14/19 08:08 Dose: 3 ml Documented by: Ceftriaxone Sodium (Rocephin) 1 gm IVPUSH Q24H [facility] Enoxaparin Sodium (Lovenox) 40 mg SUBCUT BEDTIME [facility] Last Admin: 11/13/19 23:38 Dose: 40 mg Documented by: Gabapentin (Neurontin) 100 mg PO TID [facility] Last Admin: 11/14/19 08:08 Dose: 100 mg Documented by: Non-Formulary Medication (Polyvinyl Alcohol/Povidone/Pf [Refresh Classic Eye Drops]) 1 drop EYEBOTH DAILY [facility] Patient's Own MedicationFerrous Fumarate 18 Mg 1 each PO DAILY [facility] Last Admin: 11/14/19 08:08 Dose: 1 each Documented by: Sodium Chloride (Saline Flush) 10 ml FLUSH ASDIRECTED PRN PRN Reason: Keep Vein Open Discontinued Medications Albuterol/Ipratropium (Duoneb 3.0-0.5 Mg/3 Ml) 3 ml NEB QIDRT GRACIE Ceftriaxone Sodium (Rocephin) 2 gm IM ONETIME ONE Stop: 11/13/19 20:54 Last Admin: 11/13/19 22:29 Dose: Not Given Documented by: Ceftriaxone Sodium (Rocephin) 2 gm IVPUSH ONETIME ONE Stop: 11/13/19 22:31 Last Admin: 11/13/19 22:50 Dose: 2 gm Documented by: Sodium Chloride (Normal Saline) 1,000 mls @ 100 mls/hr IV ASDIRECTED GRACIE Last Admin: 11/14/19 06:02 Dose: 100 mls/hr Documented by: Non-Formulary Medication (Iron,Carb/Vit C/Vit B12/Folic [Iron 100 Plus Tablet]) 65 mg PO DAILY [facility] Non-Formulary Medication (Nf Drug) 1 each PO DAILY GRACIE - Exam Quality Assessment: Supplemental Oxygen General: Alert, Oriented, Cooperative, No Acute Distress Neck: Supple Lungs: Clear to Auscultation (decreased in bases), Normal Respiratory Effort Cardiovascular: Regular Rate, Regular Rhythm GI/Abdominal Exam: Soft, Non-Tender, Other (morbid obesity) Back Exam: Normal Inspection Extremities: Normal Capillary Refill, Pedal Edema, Redness (decreased from last pm). No: Seth's Sign Peripheral Pulses: 2+: Radial (L), Radial (R) Skin: Warm, Dry, Intact Neurological: No New Focal Deficit Psy/Mental Status: Alert, Normal Affect, Normal Mood EKG INTERPRETATION EKG Date: 11/14/19 Time: 05:03 EKG Interpretation Comments: SR with a Vent rate of 80, 1st degree av block, no injury or ischemia Sepsis Event Note - Evaluation Sepsis Screening Result: No Definite Risk - Focused Exam Vital Signs: Vital Signs Temp Pulse Resp BP Pulse Ox 11/14/19 08:00 36.3 C 80 18 137/74 95 11/14/19 04:00 36.4 C 85 20 154/78 H 96 06/28/20 00:00 36.3 C 95 20 149/75 H 95 Date Exam was Performed: 11/14/19 Time Exam was Performed: 09:48 - Problem List & Annotations (1) Bilateral lower leg cellulitis SNOMED Code(s): 780456278 Code(s): L03.116 - CELLULITIS OF LEFT LOWER LIMB; L03.115 - CELLULITIS OF RIGHT LOWER LIMB Status: Acute Priority: Medium Current Visit: Yes (2) Mild congestive heart failure SNOMED Code(s): 57537948 Code(s): I50.9 - HEART FAILURE, UNSPECIFIED Status: Acute Priority: High Current Visit: Yes (3) Shortness of breath SNOMED Code(s): 649137572 Code(s): R06.02 - SHORTNESS OF BREATH Status: Acute Priority: High Current Visit: Yes (4) Weakness SNOMED Code(s): 14417182 Code(s): R53.1 - WEAKNESS Status: Acute Priority: Medium Current Visit: Yes - Problem List Review Problem List Initiated/Reviewed/Updated: Yes - My Orders Last 24 Hours: My Active Orders 11/13/19 Dinner 2 Gram Sodium Diet [DIET] 11/13/19 18:49 CXR [Chest 1V Frontal] [CR] Stat 11/13/19 20:32 Resuscitation Status Routine 11/13/19 21:13 Sodium Chloride 0.9% [Saline Flush] 10 ml FLUSH ASDIRECTED PRN 11/13/19 21:13 Patient Status [ADT] Routine Cardiac Monitoring [RC] 0800,2000 Height and Weight [RC] .PRN Intake and Output [RC] 0600,1800 Oxygen Therapy [RC] 2355 RT Aerosol Therapy [RC] 0800,1200,1600,2000 Up to Chair [RC] .PRN Vital Signs [RC] 0000,0400,0800,1200,1600,2000 Consult to Case Management/Garment Manufacturing Supervisor [CONS] Routine Saline Lock Insert [OM.PC] Routine 11/13/19 22:45 Gabapentin [Neurontin] 100 mg PO TID 11/13/19 23:30 Albuterol/Ipratropium [DuoNeb 3.0-0.5 MG/3 ML] 3 ml NEB QIDRT Enoxaparin [Lovenox] 40 mg SUBCUT BEDTIME 11/14/19 05:11 EKG 12 Lead [EK] AM 11/14/19 08:00 Patient's Own Medication [Ptom] 1 each PO DAILY Polyvinyl Alcohol/Povidone/Pf [Refresh Classic Eye Drops] 1 drop EYEBOTH DAILY 11/14/19 09:30 cefTRIAXone [Rocephin] 1 gm IVPUSH Q24H 11/15/19 05:11 BMP [BASIC METABOLIC PANEL,BMP] [CHEM] AM CBC WITH AUTO DIFF [HEME] AM 11/15/19 05:30 PRO B-TYPE NATRIUR PEPT,BNPPRO [CHEM] DAILY 11/16/19 05:11 CBC WITH AUTO DIFF [HEME] AM - Plan Plan:: will continue current tx plan, will repeat labs in am and will consult case management for DC planing including home health assessment and needs, dc based on physical exam and improving lab data.
[2019-11-14] MEDS ORDERED: Non-Formulary Medication 1 Each PO SCH (20:00)
[2019-11-14] MEDS: Enoxaparin 40 MG/0.4 ML Syringe SUBCUT SCH (21:05)
[2019-11-15] MEDS: Albuterol/Ipratropium 3.0-0.5 MG/3 ML Neb Soln NEB SCH ×2 (07:35→12:24)
[2019-11-15] MEDS: Gabapentin 100 MG Cap**OWN MED PO SCH (07:35)
[2019-11-15] MEDS: FERROUS FUMARATE 18 MG PO SCH (07:35)
[2019-11-15] MEDS ORDERED: cefTRIAXone 1 GM Vial IVPUSH SCH (08:00)
[2019-11-15 08:06] LABS: CHLORIDE,CL 103 mEq/L (98-106); SODIUM,NA 146 mEq/L (136-145)
[2019-11-15 12:46] VITALS: BP 138/72; PULSE 74
--- NOTE | 2019-11-15 21:37 | PCM.DCSUM1 ---
Discharge Summary - Hospital Course Free Text/Narrative:: Emily is a 44 year old female with a known history of myotonic dystrophy that presented to the ER as she was having trouble getting out of her chair. Patient states her chair was not working properly and her legs felt weak. Had called the ambulance x2 that day. Patient does have a hard time caring for herself at home, mother does have to assist her. Patient had noted increased edema and redness in her lower legs. Had mild shortness of breath. Work up in the ER did show significant edema in her legs and redness concerning for cellulitis. ProBNP was mildly elevated. Patient had not been taking her furosemide, had been using an herbal water diuretic. Was started on IV Rocephin, admitted observation. Diagnosis: Stroke: No Modified Patel Scale: No Symptoms at All Modified Patel Scale Score: 0 - Discharge Data Discharge Date: 11/15/19 Discharge Disposition: Home, Self-Care 01 Condition: Good - Referral to Home Health Primary Care Physician: Humberto Torres MD - Discharge Diagnosis/Problem(s) (1) Bilateral lower leg cellulitis SNOMED Code(s): 551678823 ICD Code: L03.116 - CELLULITIS OF LEFT LOWER LIMB; L03.115 - CELLULITIS OF RIGHT LOWER LIMB Status: Acute Priority: High (2) Mild congestive heart failure SNOMED Code(s): 91661071 ICD Code: I50.9 - HEART FAILURE, UNSPECIFIED Status: Acute Priority: High (3) Weakness SNOMED Code(s): 40362916 ICD Code: R53.1 - WEAKNESS Status: Acute Priority: High (4) Fall at home SNOMED Code(s): 18571627 ICD Code: W19.XXXA - UNSPECIFIED FALL, INITIAL ENCOUNTER; Y92.009 - UNSP PLACE IN UNSP NON-INSTITUT (PRIVATE) RESIDENCE PLACE Status: Acute Priority: High Qualifiers: Encounter type: initial encounter Qualified Code(s): W19.XXXA - Unspecified fall, initial encounter; Y92.009 - Unspecified place in unspecified non- institutional (private) residence as the place of occurrence of the external cause - Patient Summary/Data Complications: none Consults: Consultations 11/13/19 21:13 Consult to Case Management/Compliance Field Technician [CONS] Routine Hospital Course: Patient is feeling better today. Notes less redness and swelling in her legs. With the aid of the lift chair, is able to get up and ambulate with her walker. Continues on 5 liter of oxygen as she does at home. Denies shortness of breath or chest discomfort. Eating well. Legs continue to have 2-3+ edema, mildly red. Lung sounds are clear. WBC remains normal at 5.1. Potassium is low at 3.0. Will discharge her home today as they were able to arrange to have her chair fixed. Will continue on oral cephalexin for 10 days. Lasix daily. Start potassium to replace current level as well as protect more when using the diuretic. Follow up with Dr. Torres in 2 weeks in clinic. - Patient Instructions Diet: Usual Diet as Tolerated Activity: As Tolerated - Discharge Plan *PRESCRIPTION DRUG MONITORING PROGRAM REVIEWED*: Not Applicable *COPY OF PRESCRIPTION DRUG MONITORING REPORT IN PATIENT LOPEZ: Not Applicable Prescriptions/Med Rec: cephALEXin [Cephalexin] 500 mg PO TID #21 capsule Potassium Chloride 20 meq PO BID #60 tablet.er Home Medications: Home Meds Furosemide [Lasix] 40 mg PO DAILY 09/23/17 [History] Gabapentin [Neurontin] 100 mg PO TID 09/23/17 [History] Naproxen Sodium [Aleve] 220 mg PO ASDIRECTED PRN 09/23/17 [History] Polyvinyl Alcohol/Povidone/Pf [Refresh Classic Eye Drops] 1 drop EYEBOTH DAILY 09/23/17 [History] Non-Formulary Medication [NF Drug] 18 mg PO DAILY 11/14/19 [History] Potassium Chloride 20 meq PO BID #60 tablet.er 11/15/19 [Rx] cephALEXin [Cephalexin] 500 mg PO TID #21 capsule 11/15/19 [Rx] Forms: ED Department Discharge Referrals: Humberto Torres MD [Primary Care Provider] - (Follow up with Dr. Torres in 2 weeks.) - Discharge Summary/Plan Comment DC Time >30 min.: No - General Info Date of Service: 11/15/19 Admission Dx/Problem (Free Text: CHF, Cellulitis bilateral lower ext, Functional Status: Reports: Pain Controlled, Tolerating Diet, Ambulating - Review of Systems General: Reports: Weakness. Denies: Fatigue, Malaise HEENT: Reports: No Symptoms Pulmonary: Denies: Shortness of Breath, Cough Cardiovascular: Reports: Edema. Denies: Chest Pain, Lightheadedness Gastrointestinal: Denies: Abdominal Pain, Nausea, Vomiting Genitourinary: Reports: No Symptoms Musculoskeletal: Reports: Leg Pain Skin: Reports: Other (redness to legs) Neurological: Reports: Weakness - Patient Data Vitals - Most Recent: Last Vital Signs Temp 98 F 11/15/19 12:00 Pulse 74 11/15/19 12:00 Resp 20 11/15/19 12:00 BP 138/72 11/15/19 12:00 Pulse Ox 99 11/15/19 12:00 Weight - Most Recent: 362 lb 8 oz I&O - Last 24 hours: Intake & Output 11/15/19 11/15/19 11/15/19 06:59 14:59 22:59 Intake Total 200 Balance 200 Lab Results - Last 24 hrs: Laboratory Results - last 24 hr 11/15/19 11/15/19 Range/Units 05:11 07:15 WBC 5.1 (5.0-10.0) 10^3/uL RBC 4.51 (4.00-5.50) 10^6/uL Hgb 12.3 (12.0-16.0) g/dL Hct 44.6 (37.0-47.0) % MCV 98.9 H (82.0-94.0) fL MCH 27.3 (27.0-32.0) pg MCHC 27.6 L (33.0-38.0) g/dL RDW Coeff of Brain 15.9 H (11.0-15.0) % Plt Count 199 (150-400) 10^3/uL Neut % (Auto) 69.7 (35-85) % Lymph % (Auto) 17.7 (10-55) % [place] % (Auto) 7.5 (0-16) % Eos % (Auto) 4.3 (0-5) % Baso % (Auto) 0.8 (0-3) % Neut # (Auto) 3.55 (1.80-7.00) 10^3/uL Lymph # (Auto) 0.90 L (1.00-4.80) 10^3/uL [place] # (Auto) 0.38 (0.00-0.80) 10^3/uL Eos # (Auto) 0.22 (0.00-0.45) 10^3/uL Baso # (Auto) 0.04 10^3/uL Sodium 146 H (136-145) mEq/L Potassium 3.0 L (3.5-5.0) mEq/L Chloride 103 (98-106) mEq/L Carbon Dioxide 43 H* (21-32) mmol/L BUN 5 L (7-18) mg/dL Creatinine 0.6 (0.6-1.0) mg/dL Est Cr Clr Drug Dosing 96.80 mL/min Estimated GFR (MDRD) > 60 (>=60) mL/min Glucose 101 H (75-99) mg/dL Calcium 9.5 (8.4-10.1) mg/dL NT-Pro-B Natriuret Pep 697 (0-1000) pg/mL Med Orders - Current: Current Medications Discontinued Medications Albuterol/Ipratropium (Duoneb 3.0-0.5 Mg/3 Ml) 3 ml NEB QIDRT GRACIE Albuterol/Ipratropium (Duoneb 3.0-0.5 Mg/3 Ml) 3 ml NEB QIDRT [facility] Last Admin: 11/15/19 12:24 Dose: Not Given Documented by: Ceftriaxone Sodium (Rocephin) 2 gm IM ONETIME ONE Stop: 11/13/19 20:54 Last Admin: 11/13/19 22:29 Dose: Not Given Documented by: Ceftriaxone Sodium (Rocephin) 2 gm IVPUSH ONETIME ONE Stop: 11/13/19 22:31 Last Admin: 11/13/19 22:50 Dose: 2 gm Documented by: Ceftriaxone Sodium (Rocephin) 1 gm IVPUSH Q24H [facility] Last Admin: 11/14/19 10:00 Dose: 1 gm Documented by: Ceftriaxone Sodium (Rocephin) 1 gm IVPUSH Q24H [facility] Last Admin: 11/15/19 07:35 Dose: 1 gm Documented by: Enoxaparin Sodium (Lovenox) 40 mg SUBCUT BEDTIME [facility] Last Admin: 11/14/19 21:05 Dose: 40 mg Documented by: Gabapentin (Neurontin) 100 mg PO TID [facility] Last Admin: 11/15/19 07:35 Dose: 100 mg Documented by: Sodium Chloride (Normal Saline) 1,000 mls @ 100 mls/hr IV ASDIRECTED [facility] Last Admin: 11/14/19 06:02 Dose: 100 mls/hr Documented by: Non-Formulary Medication (Iron,Carb/Vit C/Vit B12/Folic [Iron 100 Plus Tablet]) 65 mg PO DAILY [facility] Non-Formulary Medication (Polyvinyl Alcohol/Povidone/Pf [Refresh Classic Eye Drops]) 1 drop EYEBOTH DAILY [facility] Non-Formulary Medication (Nf Drug) 1 each PO DAILY GRACIE Patient's Own MedicationFerrous Fumarate 18 Mg 1 each PO DAILY [facility] Last Admin: 11/15/19 07:35 Dose: 1 each Documented by: Sodium Chloride (Saline Flush) 10 ml FLUSH ASDIRECTED PRN PRN Reason: Keep Vein Open - Exam General: Reports: Alert, Oriented HEENT: Reports: Mucous Membr. Moist/[place] Neck: Reports: Supple Lungs: Reports: Clear to Auscultation, Normal Respiratory Effort Cardiovascular: Reports: Regular Rate, Regular Rhythm GI/Abdominal Exam: Normal Bowel Sounds, Soft, Non-Tender Extremities: Pedal Edema (2-3+), Increased Warmth, Redness (lower extremities still have redness and warmth, right greater than left.) Skin: Reports: Warm, Dry Neurological: Reports: No New Focal Deficit
== END 2019-11-15 12:50 | disposition home or self-care (01) ==
LOC: CC.ED 18:17 → CC.MS 20:32 → UNDOADMOB 20:39
PROVIDERS: ADMIT Nurse Practitioner; ATTEND Family Medicine
DX: L03.116 Cellulitis of left lower limb (principal); L03.115 Cellulitis of right lower limb; I50.9 Heart failure, unspecified; R53.1 Weakness; E66.9 Obesity, unspecified; Z68.44 Body mass index [BMI] 60.0-69.9, adult; W19.XXXA Unspecified fall, initial encounter; Y92.009 Unspecified place in unspecified non-institutional (private) residence as the place of occurrence of the external cause
CPT/HCPCS: 36415; 71045; 80048; 80053; 81003; 83605; 83735; 83880; 84484; 85025; 85027; 86140; 87070; 93005; 93306; 94640; 96360; 96361; 96372; 96374; 96376; 99285-25; A9270-GY; G0378; J0696; J1650; J7030; J7620-GY

== ENCOUNTER 2019-12-30 11:19 | Emergency (ER) | payer MEDICAID ==
[2019-12-30 11:29] VITALS: PULSE 77
[2019-12-30 11:37] VITALS: BP 133/84
--- NOTE | 2019-12-30 11:54 | EDM.PDOC ---
ED HPI GENERAL MEDICAL PROBLEM - General Chief Complaint: General Stated Complaint: AMBULANCE Time Seen by Provider: 12/30/19 11:46 Source of Information: Reports: Patient, EMS, RN History Limitations: Reports: No Limitations - History of Present Illness INITIAL COMMENTS - FREE TEXT/NARRATIVE: fell in the shower when the home health aid was assisting her. Ambulance was called to transport to check her out. She denies any dizziness or lightheadedness. She states that she leaned forward in the shower and lost her balance. She denies any pain at this time. She is able to move all extremities without any discomfort. She was able to get up and walk to bathroom with assist of walker. She has a small skin tear to her right buttock. (Mom states that the skin tear has been there previously) No bleeding noted. She does have a history of falls where assistance is needed to help get her up due to a neuromuscular disorder. Onset: Today Associated Symptoms: Reports: No Other Symptoms - Related Data Allergies Allergy/AdvReac Type Severity Reaction Status Date / Time No Known Allergies Allergy Verified 12/30/19 11:23 Home Meds: Home Meds Furosemide [Lasix] 40 mg PO DAILY 09/23/17 [History] Gabapentin [Neurontin] 100 mg PO TID 09/23/17 [History] Naproxen Sodium [Aleve] 220 mg PO ASDIRECTED PRN 09/23/17 [History] Polyvinyl Alcohol/Povidone/Pf [Refresh Classic Eye Drops] 1 drop EYEBOTH DAILY 09/23/17 [History] Non-Formulary Medication [NF Drug] 18 mg PO DAILY 11/14/19 [History] Potassium Chloride 20 meq PO BID #60 tablet.er 11/15/19 [Rx] Past Medical History HEENT History: Reports: Impaired Vision Other HEENT History: GLASSES Musculoskeletal History: Reports: Other (See Below) Other Musculoskeletal History: myotonic dystrophy Neurological History: Reports: Other (See Below) Endocrine/Metabolic History: Reports: Obesity/BMI 30+ Hematologic History: Reports: B12 Deficiency, Iron Deficiency Dermatologic History: Reports: Urticaria Social & Family History - Family History Family Medical History: Noncontributory - Tobacco Use Smoking Status *Q: Never Smoker - Caffeine Use Caffeine Use: Reports: Soda - Living Situation & Occupation Living situation: Reports: Single, with Family Occupation: Disabled ED ROS GENERAL - Review of Systems Review Of Systems: See Below Constitutional: Reports: No Symptoms HEENT: Reports: No Symptoms Respiratory: Reports: No Symptoms Cardiovascular: Reports: No Symptoms GI/Abdominal: Reports: No Symptoms Musculoskeletal: Reports: Other (has generalized weakness) Skin: Reports: Wound (right buttock has small skin tear that was there prior to this fall.) Neurological: Denies: Confusion, Dizziness, Headache, Syncope ED EXAM, GENERAL - Physical Exam Exam: See Below Exam Limited By: Uncooperative General Appearance: WD/WN, No Apparent Distress Ears: Normal External Exam, Normal Canal, Normal TMs Nose: Normal Inspection Throat/Mouth: Normal Inspection, Normal Oropharynx Head: Atraumatic, Normocephalic Neck: Normal Inspection, Supple, Non-Tender, Full Range of Motion Respiratory/Chest: No Respiratory Distress, Lungs Clear, Normal Breath Sounds Cardiovascular: Regular Rate, Rhythm GI/Abdominal: Normal Bowel Sounds, Soft, Non-Tender Back Exam: Normal Inspection Extremities: Normal Inspection Neurological: Alert, Oriented Skin Exam: Warm, Dry, Intact, Wound/Incision (small skin tear on her right buttock) Course - Vital Signs Last Recorded V/S: Last Vital Signs Temp 97.6 F 12/30/19 11:23 Pulse 77 12/30/19 11:23 Resp 18 12/30/19 11:23 BP 133/84 12/30/19 11:37 Pulse Ox 100 12/30/19 11:23 Departure - Departure Time of Disposition: 11:54 Disposition: Home, Self-Care 01 Condition: Fair Clinical Impression: Fall at home Qualifiers: Encounter type: initial encounter Qualified Code(s): W19.XXXA - Unspecified fall, initial encounter - Discharge Information *PRESCRIPTION DRUG MONITORING PROGRAM REVIEWED*: Not Applicable *COPY OF PRESCRIPTION DRUG MONITORING REPORT IN PATIENT LOPEZ: Not Applicable Forms: ED Department Discharge Additional Instructions: continue on same treatment and meds recheck with any new concerns. Sepsis Event Note (ED) - Evaluation Sepsis Screening Result: No Definite Risk - Problem List & Annotations (1) Fall at home SNOMED Code(s): 41373745 Code(s): W19.XXXA - UNSPECIFIED FALL, INITIAL ENCOUNTER; Y92.009 - UNSP PLACE IN UNSP NON-INSTITUT (PRIVATE) RESIDENCE PLACE Status: Acute Priority: High Qualifiers: Encounter type: initial encounter Qualified Code(s): W19.XXXA - Unspecified fall, initial encounter; Y92.009 - Unspecified place in unspecified non- institutional (private) residence as the place of occurrence of the external cause (2) Myotonic dystrophy Status: Chronic Priority: Low - Problem List Review Problem List Initiated/Reviewed/Updated: Yes
== END 2019-12-30 12:13 | disposition home or self-care (01) ==
LOC: CC.ED 11:19
DX: S31.811A Laceration without foreign body of right buttock, initial encounter (principal); E66.9 Obesity, unspecified; Z68.44 Body mass index [BMI] 60.0-69.9, adult; Z79.899 Other long term (current) drug therapy; W18.2XXA Fall in (into) shower or empty bathtub, initial encounter; Y92.012 Bathroom of single-family (private) house as the place of occurrence of the external cause
CPT/HCPCS: 99283